=== PATIENT | male | born 1965 | race African-American/Black ===

== ENCOUNTER → 2020-02-02 | Emergency (ER) | payer SELFPAY ==
[~2020-02-02] VITALS: Ht 182.9 cm; Wt 83.9 kg
[2020-02-02 22:15] VITALS: BP 130/60
== END | disposition home or self-care (01) ==
LOC: EDBD 21:26 → ER 21:26
DX: R07.89 Other chest pain (principal); F41.9 Anxiety disorder, unspecified; F17.210 Nicotine dependence, cigarettes, uncomplicated; F12.10 Cannabis abuse, uncomplicated
CPT/HCPCS: 71046